=== PATIENT | female | born 2005 | race Caucasian/White ===

== ENCOUNTER 2025-07-31 13:28 | Emergency (ER) | payer SELFPAY ==
[2025-07-31 14:23] LABS: Glucose, Urine (Dipstick) Negative (Negative); Leukocyte Large (Negative); Protein, Urine (Dipstick) 30 mg/dL (Neg-Trace); Specific Gravity, Urine 1.020 (1.005-1.030)
[2025-07-31 14:54] LABS: Bacteria/HPF 3+ HPF (None Seen); CAUTI Indications for Culture Pelvic or flank pain; Mucous/LPF 1+ LPF (<2+); WBC/HPF Greater than 50 HPF (0-3); Yeast-Budding 1+ HPF (None Seen)
[2025-07-31 14:56] LABS: Urine Culture Reflex Yes Yes
[2025-07-31] MEDS ORDERED: Sulfameth/Trimethoprim DS 800-160mg TAB ONE (15:15)
== END 2025-07-31 15:25 | disposition home or self-care (01) ==
LOC: NAV ERS 13:28
DX: F41.9 Anxiety disorder, unspecified (principal); N39.0 Urinary tract infection, site not specified; R00.2 Palpitations; F17.290 Nicotine dependence, other tobacco product, uncomplicated
CPT/HCPCS: 81001; 87086; 93005; 99285